=== PATIENT | female | born 1955 | race Caucasian/White ===

== ENCOUNTER 2016-10-06 07:05 | Day surgery (SDC) | payer OTHER ==
[~2016-10-06] VITALS: Ht 154.9 cm; Wt 83.5 kg
[2016-10-06 08:52] VITALS: Ht 154.9 cm; Wt 83.5 kg
[2016-10-06 09:58] VITALS: BP 137/66; PULSE 52; RESP 18
[2016-10-06] MEDS ORDERED: FENTAnyl 50 MCG/ML VIAL ONE (10:40)
[2016-10-06] MEDS ORDERED: MIDAZOLAM 1 MG/ML 2 ML INJ ONE ×2 (10:40)
[2016-10-06 11:00] VITALS: BP 137/74; PULSE 52; RESP 16
--- NOTE | 2016-10-06 12:56 | GILP ---
DATE OF PROCEDURE: NAME OF PROCEDURES: 1. Esophagogastroduodenoscopy and biopsy. 2. Colonoscopy. SURGEON: Ashley Dave MD PREOPERATIVE DIAGNOSES: 1. Chronic heartburn. 2. Screening colonoscopy. POSTOPERATIVE DIAGNOSES: 1. Gastroesophageal reflux disease. 2. Gastritis with erosions. 3. Gastric mucosal biopsies are positive for Helicobacter pylori infection. 4. Colonoscopy all the way to the cecum. 5. Internal hemorrhoids. 6. No colon neoplasm was identified. INDICATION FOR THE PROCEDURE: Ms. Melanie Benitez is a 60-year-old female patient who had chronic he artburn, not responding to therapy. The patient also needed screening colonoscopy. The procedures and possible complications are well explained to the patient, she understood and cons ented to the procedures. DESCRIPTION OF PROCEDURE: Under the influence of fentanyl and Versed, the gastroscope was carefully introduced into the esophagus and under direct vision, it was advanced to the stomach and through t he pylorus into the duodenal bulb and descending duodenum. FINDINGS: ESOPHAGUS: The patient had gastroesophageal reflux disease. STOMACH: She had gastritis with erosions. Gastric mucosal biopsies were positive for H pylori infe ction. DUODENUM: Normal. The colonoscope was carefully introduced in the rectum and under direct vision, it was advanced all the way to the cecum. FINDINGS: The patient had internal hemorrhoids. No colon neoplasm was identified. She tolerated the procedures very well and there was no complication from the procedures. At the en d of the procedures, she was awake with stable vital signs and she was discharged home to the care o f her family. IMPRESSION: Please see postoperative diagnosis. PLAN: 1. Zantac 300 mg p.o. b.i.d. for 14 days. 2. Doxycycline 100 mg p.o. b.i.d. for 14 days. 3. Flagyl 500 mg p.o. b.i.d. for 14 days. 4. Pepto-Bismol 2 tablets p.o. q.i.d. for 14 days. 5. Next screening colonoscopy in 10 years. Dictated By: ASHLEY THAYER/FIDELIA Conf#: [id number] DID#: [id number]
== END 2016-10-06 12:58 | disposition home or self-care (01) ==
LOC: GIL 07:05
PROVIDERS: ATTEND Internal Medicine Gastroenterology
DX: Z12.11 Encounter for screening for malignant neoplasm of colon (principal); B96.81 Helicobacter pylori [H. pylori] as the cause of diseases classified elsewhere; K21.9 Gastro-esophageal reflux disease without esophagitis; K29.60 Other gastritis without bleeding; K64.8 Other hemorrhoids
CPT/HCPCS: 43239; 45378; 87081; J2250; J3010; Z7610